=== PATIENT | male | born 1990 | race Caucasian/White ===

== ENCOUNTER 2019-06-29 22:36 | Emergency (ER) | payer OTHER ==
[~2019-06-29] VITALS: Ht 182.9 cm; Wt 105.1 kg
[2019-06-30 00:54] VITALS: BP 122/72
== END 2019-06-30 02:00 | disposition home or self-care (01) ==
LOC: ED 23:26
DX: R42 Dizziness and giddiness (principal)
CPT/HCPCS: 70450; 93005; 99284